=== PATIENT | male | born 1990 | race Caucasian/White ===

== ENCOUNTER 2023-07-24 21:39 | Emergency (ER) | payer SELFPAY ==
[2023-07-24 21:40] VITALS: BP 126/83; PULSE 112; RESP 18; TEMP 36.7; O2SAT 97; BMI 18.2
--- NOTE | 2023-07-24 22:05 | XRR_ITS ---
PROCEDURE INFORMATION: Exam: XR Ribs Exam date and time: 07/24/2023 10:12 PM Age: 33 years old Clinical indication: Injury or trauma; Fall; Rib area, bilateral; Blunt trauma; Additional info: Fall from bridge. R posterior chest wall and SOB. TECHNIQUE: Imaging protocol: Radiologic exam of the of the ribs. Views: 3 views. Bilateral ribs. COMPARISON: No relevant prior studies available. FINDINGS: Bones/joints: No acute osseous abnormalities are seen. Specifically, there is no plain film evidence of rib fracture. Lungs: Calcified granulomas in the left upper lung zone. No consolidation. Pleural space: No pleural effusion or pneumothorax. Heart/Mediastinum: The cardiomediastinal silhouette is within normal limits. Soft tissues: Normal. XR/XR ribs BI mn 4V w [id number] IMPRESSION: 1. Evidence of acute cardiopulmonary disease. 2. No evidence of rib fracture.
[2023-07-24 22:26] VITALS: BP 123/71; PULSE 92; RESP 16; O2SAT 96
[2023-07-24] MEDS: HYDROcodone-acetaminophen 5-325 mg Tablet 1 TAB PO (22:27)
[2023-07-24] MEDS: methocarbamol 750 mg Tablet PO (22:27)
--- NOTE | 2023-07-24 23:19 | W.ED.BACK ---
HPI - Back Pain/Injury General: Chief Complaint: Back Pain/Injury Stated Complaint: Fell Knot on Back Time Seen by Provider: 07/24/23 21:57 Source: patient and family Mode of arrival: ambulatory Limitations: no limitations History of Present Illness: Patient ports he fell from a bridge into a [place] and then got dragged by the [place] about 20 feet. Has a knot on his right upper back by the shoulder blade and has pain with deep breath and pain along the right posterior and lateral rib area. MD elicited complaint: back pain Review of Systems General: Reports: 10 or more systems reviewed and unremarkable except in HPI and below Physical Exam Const: COMMON NORMALS: average body habitus, patient oriented x3, healthy appearing, alert and well nourished GENERAL APPEARANCE: well kempt, well developed and in distress (Mild secondary to pain) HENMT: COMMON NORMALS: normocephalic, atraumatic, external ears normal and moist oral mucous membranes HEAD & SCALP: normocephalic and atraumatic EXTERNAL EAR: Yes external ears normal Eye: COMMON NORMALS: Equal, round and reactive pupils present, EOMs intact bilaterally and conjunctivae normal CONJUNCTIVA: Yes conjunctivae normal PUPIL: Yes Equal, round and reactive pupils present Neck/C-Spine: COMMON NORMALS: full ROM, no lymphadenopathy and supple Chest: CHEST: Yes Symmetrical chest wall rise and No Surgical scars present (Chest) Resp: COMMON NORMALS: normal respiratory effort, No retractions, No use of accessory muscles and clear to auscultation bilaterally AUSCULTATION: clear to auscultation bilaterally Cardio: COMMON NORMALS: regular rate, regular rhythm, S1 normal heart sound present, S2 normal heart sound present, No gallops present (Cardio), No clicks present (Cardio), No murmurs present (Cardio) and No rub (Cardio) RATE: regular rate RHYTHM: regular rhythm HEART SOUNDS: S1 normal heart sound present, S2 normal heart sound present and no murmurs PERIPHERAL PULSES: other (Radial pulses 2+ and symmetric) GI: COMMON NORMALS: Soft to palpation, non-tender and no masses INSPECTION: No abdominal distension PALPATION: Yes Soft to palpation, No Guarding due to palpation present (GI) and No Rebound tenderness present : COMMON NORMALS: Yes no CVA tenderness BLADDER/KIDNEY EXAM: Yes no CVA tenderness Back/Pelvis: COMMON NORMALS: no CVA tenderness THORACIC SPINE/UPPER BACK: Yes other soft tissue findings (Hematoma present to right upper thoracic area near the right shoulder blade) Extremity: COMMON NORMALS: normal to inspection, full ROM, capillary refill normal and no clubbing, cyanosis or edema Neuro: COMMON NORMALS: patient oriented x3 SENSORIUM/ORIENTATION: Yes alert Psych: APPEARANCE: Yes well kempt Skin: COMMON NORMALS: no rashes or lesions noted, no wounds, turgor normal and no jaundice GENERAL SKIN EXAM: no rashes or lesions noted and turgor normal Course Reevaluation(s): Reevaluation #1: Pending x-ray read, patient reports pain medication has improved pain some. Time: 23:50 Vital Signs: Vital signs: Vital Signs Temperature 98.0 F 07/24/23 21:40 Pulse Rate 92 07/24/23 22:26 Respiratory Rate 16 07/24/23 22:26 Blood Pressure 123/71 07/24/23 22:26 Pulse Oximetry 96 07/24/23 22:26 Oxygen Delivery Me thod Room Air 07/24/23 22:26 MDM - Back Pain/Injury Medical Decision Making Patient had a fall, had some right chest wall and posterior chest wall pain. Pains improved with treatment of Robaxin and [place]. Patient refuses IV. X-ray of the ribs done and shows no acute fracture and likely has contusions and musculoskeletal pain. Will discharge with NSAIDs and muscle laxer. Follow-up with primary care. Differential Diagnosis Likely thoracic back pain; Unlikely lumbar radiculopathy, sciatica, strain of lumbar region, AAA or discitis Labs Radiology Impressions Ribs w/Chest X-Ray 07/24/23 22:05 IMPRESSION: 1. Evidence of acute cardiopulmonary disease. 2. No evidence of rib fracture. All radiology interpretation(s) finalized by discharge ED provider radiology interpretation(s): Personally viewed the x-ray I see no acute abnormality except possible right ninth rib fracture but could be artifact. Discharge Plan Discharge Patient Disposition: Home Clinical Impression: Thoracic back pain Qualifiers: Chronicity: acute Back pain laterality: bilateral Qualified Code(s): M54.6 - Pain in thoracic spine Contusion of rib on right side Qualifiers: Encounter type: initial encounter Qualified Code(s): S20.211A - Contusion of right front wall of thorax, initial encounter Condition: Stable Prescriptions: New ketorolac 10 mg tablet 10 mg PO Q4H PRN (Reason: pain) 5 Days Qty: 20 0RF Rx Instructions: while awake; do not exceed 4 doses per day methocarbamol 750 mg tablet 750 mg PO TID PRN (Reason: back pain/soreness) Qty: 21 0RF Discharge Orders: Discharge ED (Routine); Ordered 07/25/23 Ordered By: Sabino Freeman Discharge Diet: Usual diet Discharge Activity: Increase activity as tolerated Patient Instructions: Rib Contusion (ED), Musculoskeletal Pain (ED) Stand Alone Forms: Work/School Release Coding Level of Care Code ED Crisis Worker for Esau Nieves
[2023-07-25 00:29] VITALS: BP 102/64; PULSE 72; O2SAT 95
[2023-07-25 00:30] VITALS: BP 102/64; PULSE 72; O2SAT 95
== END 2023-07-25 00:30 | disposition home or self-care (01) ==
PROVIDERS: Emergency Provider Emergency Medicine
DX: M54.6 Pain in thoracic spine (principal); S20.211A Contusion of right front wall of thorax, initial encounter; W13.1XXA Fall from, out of or through bridge, initial encounter
CPT/HCPCS: 71111; 99283